=== PATIENT | female | born 1970 | race Caucasian/White ===

== ENCOUNTER 2017-07-26 12:10 | Emergency (ER) | payer OTHER ==
[~2017-07-26] VITALS: Ht 167.6 cm; Wt 78.2 kg
[2017-07-26] MEDS ORDERED: AUGMENTIN875 MG PO (14:49)
[2017-07-26] MEDS ORDERED: MOTRIN800 MG PO (14:49)
[2017-07-26 16:26] VITALS: BP 131/94
== END 2017-07-26 16:27 | disposition home or self-care (01) ==
LOC: EME 12:10
PROC: 3E0234Z Introduction of Serum, Toxoid and Vaccine into Muscle, Percutaneous Approach (ICD-10-PCS; principal; 2017-07-26)
DX: S61.552A Open bite of left wrist, initial encounter (principal); W55.01XA Bitten by cat, initial encounter; Z23 Encounter for immunization; Z72.0 Tobacco use
CPT/HCPCS: 99281; 99284